=== PATIENT | male | born 1985 | race Caucasian/White ===

== ENCOUNTER → 2017-11-04 | Outpatient (CLI) | payer BC ==
[2017-11-04 10:14] LABS: SEMEN VOLUME 2.8 ML (1.5-5.0)
== END ==
LOC: LAB 08:37
PROVIDERS: ATTEND Obstetrics & Gynecology
DX: N46.9 Male infertility, unspecified (principal)
CPT/HCPCS: 89320

== ENCOUNTER 2020-08-19 21:39 | Emergency (ER) | payer BC ==
[~2020-08-19] VITALS: Ht 167.7 cm; Wt 66.8 kg
[2020-08-19 21:43] VITALS: BP 145/91
--- NOTE | 2020-08-19 21:51 | ED Integumentary General ---
General Stated Complaint: LT THUMB LAC Source: patient Exam Limitations: no limitations History of Present Illness Date Seen by Provider: Aug 19, 2020 Time Seen by Provider: 21:51 Initial Comments 35-year-old male presents with accidental cut to his left thumb using a knife. No other injury or complaint. Last tetanus greater than 5 years. Allergies and Home Medications Allergies Coded Allergies: No Known Drug Allergies (Unverified , 08/19/20) Patient Home Medication List Home Medication List Reviewed: Yes Review of Systems Review of Systems Constitutional: no symptoms reported Musculoskeletal: see HPI Skin: see HPI, other (lac thumb) Psychiatric/Neurological: Denies Numbness, Denies Paresthesia, Denies Weakness Past Eqbhgfi-Mcdwdr-Sjqmia Hx Past Med/Social Hx: Reviewed Nursing Past Med/Soc Hx Physical Exam Vital Signs Capillary Refill : General Appearance: WD/WN, no apparent distress Skin: normal color, warm/dry, other (2cm linear, clean lac left thumb. NVI, full and functional ROM) Procedures/Interventions Wound Location: Upper Extremities Other Wound Location left thumb Wound's Depth, Shape: linear Wound Explored: clean Anesthesia: 0.5% Sensorcaine Volume Anesthetic (ccs): 3 Suture: Plain, Ethlion Suture Size: 4-0 Number of Sutures: 3 Sterile Dressing Applied?: Yes Progress/Results/Core Measures Results/Orders My Orders Orders - DONTA GONZALEZ DO Tetanus/Diphtheria Inj (Adult) (Tenivac (08/19/20 22:00) Bupivacaine 0.5% Injection (Sensorcaine (08/19/20 22:00) Medications Given in ED Current Medications Medications Dose Ordered Sig/Fernanda Route Start Time Stop Time Status Last Admin Dose Admin Tetanus/ Diphtheria Toxoids 0.5 ml ONCE ONCE IM 08/19/20 22:00 08/19/20 22:01 DC 08/19/20 22:03 0.5 ML Departure Impression Primary Impression: Laceration of thumb Qualified Codes: S61.012A - Laceration without foreign body of left thumb without damage to nail, initial encounter Disposition: HOME, SELF-CARE Condition: Improved Departure-Patient Inst. Decision time for Depature: 22:42 Referrals: HERLINDA ACOSTA MD (PCP/Family) Primary Care Physician Patient Instructions: Laceration Repair With Stitches (DC) Add. Discharge Instructions: Follow up w your PCP for suture removal in 10 days. DONTA GONZALEZ DO Aug 19, 2020 21:51
[2020-08-19] MEDS ORDERED: TETANUS & DIPHTHERIA TOX,ADULT 0.5 ML (TENIVAC) IM ONE (22:00)
[2020-08-19] MEDS ORDERED: BUPIVACAINE 0.5% 30 ML (SENSORCAINE) VIAL INJ ONE (22:00)
== END 2020-08-19 22:47 | disposition home or self-care (01) ==
LOC: EDUNIT# 21:39 → ER FS 21:40
DX: S61.012A Laceration without foreign body of left thumb without damage to nail, initial encounter (principal); Z23 Encounter for immunization; W26.0XXA Contact with knife, initial encounter
CPT/HCPCS: 12001; 90714